=== PATIENT | female | born 1985 | race Caucasian/White ===

== ENCOUNTER 2016-08-26 19:28 | Emergency (ER) | payer OTHER ==
[~2016-08-26] VITALS: Ht 162.6 cm; Wt 72.6 kg
--- NOTE | 2016-08-26 19:42 | NUR ---
PT [facility] FOR BEHAVIORAL. PSYCHOTIC BEHAVIOR AT HOME. - NOT EATING. OFF PSYCHE MEDS X 2 WEEKS. PT AOX3. - SI/HI. RR EVEN AND UNLABORED. NO SOB NOTED. NAD NOTED. NO NVD AT THIS TIME. PT PLACED ON MONITOR PT NOT DIAPHORETIC. PT WAITING FOR MD LIND.
[2016-08-26 19:45] LABS: BASOPHILS % (AUTO) 0.4 % (0.0-2.0); EOSINOPHILS % (AUTO) 0.1 % (0.0-6.0); HEMATOCRIT 48 % (33-45); HEMOGLOBIN 16.3 g/dL (11.5-14.8); LYMPHOCYTES # (AUTO) 2.7 /CMM (0.8-4.8); MEAN CORPUSCULAR HEMOGLOBIN 34 PG (26.0-33.0); MEAN CORPUSCULAR HGB CONC 34 g/dl (31.0-36.0); MEAN CORPUSCULAR VOLUME 100 fL (82-100); MONOCYTES # (AUTO) 0.6 /CMM (0.1-1.30); MONOCYTES % (AUTO) 5.7 % (2.0-12.0); NEUTROPHILS # (AUTO) 6.7 /CMM (1.8-8.9); NEUTROPHILS % (AUTO) 66.8 % (43.0-81.0); PLATELET COUNT (AUTO) 388 /CMM (150-450); RDW COEFFICIENT OF VARIATION 13.2 (11.5-15.0)
[2016-08-26 19:52] LABS: CARBON DIOXIDE 15 mmol/L (21-32); CHLORIDE 101 mmol/L (98-107); CREATININE 0.9 mg/dL (0.6-1.3); GLUCOSE 92 mg/dL (74-106); POTASSIUM 4.3 mmol/L (3.5-5.1); SODIUM SERUM 141 mmol/L (136-145); UREA NITROGEN, BLOOD 12 mg/dL (7-18)
[2016-08-26 19:58] LABS: ALANINE AMINOTRANSFERASE 67 U/L (12-78); ALCOHOL, BLOOD 293 mg/dL (0-0); ALKALINE PHOSPHATASE 100 U/L (46-116); ASPARTATE AMINOTRANSFERASE 63 U/L (15-37); BILIRUBIN,DIRECT 0.1 mg/dL (0.0-0.2); BILIRUBIN,TOTAL 0.2 mg/dL (0.2-1.0); TOTAL PROTEIN, SERUM 8.9 g/dL (6.4-8.2)
[2016-08-26 19:59] LABS: ACETAMINOPHEN < 10 ug/ml (10-30)
[2016-08-26] MEDS ORDERED: LORAZEPAM 1 MG TABLET PO ONE (20:30)
--- NOTE | 2016-08-26 20:40 | NUR ---
URINE COLLECTED. CALLED LAB FOR [facility] ATTENDANT.
[2016-08-26 21:01] LABS: APPEARANCE,URINE Clear (CLEAR); BILIRUBIN,URINE Negative (NEGATIVE); BLOOD, URINE Moderate Ery/uL (NEGATIVE); COLOR,URINE Yellow (YELLOW); KETONES,URINE 80 (NEGATIVE); LEUKOCYTE ESTERASE ,URINE Negative (NEGATIVE); NITRITE, URINE Negative (NEGATIVE); PROTEIN,URINE >=300 mg/dl (NEGATIVE); UGLUCOSE Negative (NEGATIVE); UROBILINOGEN,URINE 0.2 EU/dL (0.2)
[2016-08-26] MEDS ORDERED: LORAZEPAM 1 MG TABLET ONE (21:05)
--- NOTE | 2016-08-26 21:07 | NUR ---
PINKY AT BEDSIDE FOR EVAL.
[2016-08-26 21:23] LABS: SQUAMOUS EPITHELIAL CELL,UR Moderate /HPF (None Seen); WBC,URINE 0-2 /HPF (0-3)
[2016-08-26 21:24] LABS: BACTERIA,URINE Rare /HPF (None Seen); HYALINE CASTS, URINE Moderate /LPF (None Seen); MUCUS,URINE Rare /LPF (None Seen)
--- NOTE | 2016-08-26 21:31 | NUR ---
PT'S MOTHER ARRIVED AND IS AT THE BEDSIDE.
[2016-08-26 22:04] VITALS: BP 146/88
--- NOTE | 2016-08-26 22:05 | NUR ---
Kayce fajardo in ED - 08/26/16 at 2206 by MAN Patient discharged to home in stable condition. Written and verbal after care instructions given. Patient verbalizes understanding of instruction. ambulatory with a steady gait. pt instructed pt not to drive. pt verbalize understanding.
== END 2016-08-26 22:19 | disposition home or self-care (01) ==
LOC: ER 19:31
DX: F10.229 Alcohol dependence with intoxication, unspecified (principal); F31.9 Bipolar disorder, unspecified; F41.9 Anxiety disorder, unspecified; F12.90 Cannabis use, unspecified, uncomplicated; F17.200 Nicotine dependence, unspecified, uncomplicated
CPT/HCPCS: 36415; 80048-TC; 80076-TC; 80305; 81000-TC; 85025-TC; A4606; G0480; Z7610